=== PATIENT | male | born 1985 | race Caucasian/White ===

== ENCOUNTER 2018-04-23 11:24 | Emergency (ER) | payer OTHER ==
[~2018-04-23] VITALS: Ht 177.8 cm; Wt 145.2 kg
[~2018-04-23 11:24] MED LIST: ALBU90OI; ALBU90OI INH; ALBU90OI61 INH; AZIT250 PO; Benadryl 50 mg50 MG PO; CLIN300 PO; CODACE30 PO; CODGUAEL PO; CRUTCH4 USE; CYCL10 PO; DIPATR PO; FLUSAL2505; HYDACE5 PO; IBUP600 PO; IBUP800 PO; Lisinopril2.5 MG; METPRE4DP PO; NAPR500 PO; Naprosyn500 MG PO; Norco 10-325 T1 EACH PO; OMEP20ER; ONDA4ODT MM; PRED10 PO; PRED20 PO; PROCODE120 PO; PROM25 PO; RXHYDACE PO; RXIBUP800 PO; SULTRIDS PO
[2018-04-23] MEDS ORDERED: Percocet 7.5-31 EACH PO (12:40)
[2018-04-23] MEDS ORDERED: CRUTCH2 XX (12:43)
== END 2018-04-23 13:00 | disposition home or self-care (01) ==
LOC: ER 11:24
DX: S92.312A Displaced fracture of first metatarsal bone, left foot, initial encounter for closed fracture (principal); S92.322A Displaced fracture of second metatarsal bone, left foot, initial encounter for closed fracture; F17.200 Nicotine dependence, unspecified, uncomplicated; W31.89XA Contact with other specified machinery, initial encounter; Y99.0 Civilian activity done for income or pay
CPT/HCPCS: 29515; 73630; 96372; 99283; J3010

== ENCOUNTER 2018-05-02 10:56 | Day surgery (SDC) | payer OTHER ==
[~2018-05-02] VITALS: Ht 180.3 cm; Wt 145.2 kg
[~2018-05-02 10:56] MED LIST changes: +CRUTCH2 XX; +Percocet 7.5-31 EACH PO
== END 2018-05-02 22:39 | disposition home or self-care (01) ==
LOC: ORSCMMR 10:56 → ORD 12:30 → ORSCSDS 12:30 → ORSCMMR 12:30
PROVIDERS: Podiatrist Foot & Ankle Surgery
PROC: 0QSP0ZZ Reposition Left Metatarsal, Open Approach (ICD-10-PCS; principal; 2018-05-02 12:30)
DX: S92.322A Displaced fracture of second metatarsal bone, left foot, initial encounter for closed fracture (principal); S92.312A Displaced fracture of first metatarsal bone, left foot, initial encounter for closed fracture; S92.335A Nondisplaced fracture of third metatarsal bone, left foot, initial encounter for closed fracture; F17.210 Nicotine dependence, cigarettes, uncomplicated; E66.9 Obesity, unspecified; Z68.41 Body mass index [BMI] 40.0-44.9, adult
CPT/HCPCS: J0690; J2250; J3010; J7120

== ENCOUNTER 2018-05-11 06:07 | Day surgery (SDC) | payer OTHER ==
[~2018-05-11] VITALS: Ht 177.8 cm; Wt 144.0 kg
== END 2018-05-11 11:27 | disposition home or self-care (01) ==
LOC: ORSCSDS 06:07
PROVIDERS: Podiatrist Foot & Ankle Surgery
PROC: 0QSP04Z Reposition Left Metatarsal with Internal Fixation Device, Open Approach (ICD-10-PCS; principal; 2018-05-11 07:30)
DX: S92.312A Displaced fracture of first metatarsal bone, left foot, initial encounter for closed fracture (principal); S92.322A Displaced fracture of second metatarsal bone, left foot, initial encounter for closed fracture; S92.335A Nondisplaced fracture of third metatarsal bone, left foot, initial encounter for closed fracture; S97.82XA Crushing injury of left foot, initial encounter; G47.33 Obstructive sleep apnea (adult) (pediatric); F17.210 Nicotine dependence, cigarettes, uncomplicated; E66.01 Morbid (severe) obesity due to excess calories; Z68.42 Body mass index [BMI] 45.0-49.9, adult
CPT/HCPCS: C1713; J0330; J0690; J1100; J1885; J2250; J2405; J2710; J3010; J7120

== ENCOUNTER → 2022-06-06 | Outpatient (CLI) | payer OTHER ==
[2022-06-06 12:45] LABS: BASOPHILS ABSOLUTE AUTO 0.03 K/mm3 (0.00-0.23); BASOPHILS PERCENT AUTO 0 % (0-2); EOSINOPHILS ABSOLUTE AUTO 0.25 K/mm3 (0.00-0.68); EOSINOPHILS PERCENT AUTO 2 % (0-6); Hematocrit 40.7 % (37.0-53.0); Hemoglobin 13.5 g/dL (13.5-17.5); IMMATURE GRAN ABSOLUTE AUTO 0.12 K/mm3 (0.00-0.10); IMMATURE GRAN PERCENT AUTO 1 % (0-1); LYMPHOCYTES ABSOLUTE AUTO 1.97 K/mm3 (0.84-5.20); LYMPHOCYTES PERCENT AUTO 16 % (21-46); MONOCYTES ABSOLUTE AUTO 0.63 K/mm3 (0.16-1.47); MONOCYTES PERCENT AUTO 5 % (4-13); Mean Corpuscular HGB 28.9 pg (26.0-34.0); Mean Corpuscular HGB Conc 33.2 g/dL (31.5-36.5); Mean Corpuscular Volume 87 fL (80-100); Mean Platelet Volume 10.4 fL (9.1-12.4); NEUTROPHILS ABSOLUTE AUTO 9.39 K/mm3 (1.96-9.15); NEUTROPHILS PERCENT AUTO 76 % (41-73); Platelet Count 291 K/mm3 (150-400); RDW Coefficient Variation 13.9 % (11.7-14.2); RDW Standard Deviation 43.8 fL (35.1-46.3); Red Blood Cell Count 4.67 M/mm3 (4.30-5.90); White Blood Cell Count 12.39 K/mm3 (4.00-11.30)
[2022-06-06 13:01] LABS: Albumin, Blood 3.5 g/dL (3.4-5.0); Albumin/Globulin Ratio 0.9 (0.8-1.8); Bilirubin, Total 0.3 mg/dL (0.1-1.0); Bun/Creatinine Ratio 14.5 (12.0-20.0); Creatinine, Blood 0.76 mg/dL (0.60-1.20); Potassium, Blood 3.8 mmol/L (3.5-5.5); Total Protein, Blood 7.5 g/dL (6.4-8.2)
== END | disposition home or self-care (01) ==
LOC: LAB SHORT 12:41 → LAB 12:41
PROVIDERS: Chiropractor
DX: R07.89 Other chest pain (principal)
CPT/HCPCS: 80053; 84484; 85025

== ENCOUNTER 2023-01-31 09:26 | Emergency (ER) | payer OTHER ==
[~2023-01-31] VITALS: Ht 177.8 cm; Wt 181.4 kg
[2023-01-31 10:12] LABS: BASOPHILS ABSOLUTE AUTO 0.03 K/mm3 (0.00-0.23); BASOPHILS PERCENT AUTO 0 % (0-2); EOSINOPHILS ABSOLUTE AUTO 0.23 K/mm3 (0.00-0.68); EOSINOPHILS PERCENT AUTO 2 % (0-6); Hematocrit 43.3 % (37.0-53.0); Hemoglobin 14.4 g/dL (13.5-17.5); IMMATURE GRAN ABSOLUTE AUTO 0.09 K/mm3 (0.00-0.10); IMMATURE GRAN PERCENT AUTO 1 % (0-1); LYMPHOCYTES ABSOLUTE AUTO 1.81 K/mm3 (0.84-5.20); LYMPHOCYTES PERCENT AUTO 15 % (21-46); MONOCYTES ABSOLUTE AUTO 0.79 K/mm3 (0.16-1.47); MONOCYTES PERCENT AUTO 6 % (4-13); Mean Corpuscular HGB 28.3 pg (26.0-34.0); Mean Corpuscular HGB Conc 33.3 g/dL (31.5-36.5); Mean Corpuscular Volume 85 fL (80-100); Mean Platelet Volume 10.5 fL (9.1-12.4); NEUTROPHILS ABSOLUTE AUTO 9.46 K/mm3 (1.96-9.15); NEUTROPHILS PERCENT AUTO 76 % (41-73); Platelet Count 294 K/mm3 (150-400); RDW Coefficient Variation 13.6 % (11.7-14.2); RDW Standard Deviation 42.5 fL (35.1-46.3); Red Blood Cell Count 5.08 M/mm3 (4.30-5.90); White Blood Cell Count 12.41 K/mm3 (4.00-11.30)
[2023-01-31 10:34] LABS: Albumin, Blood 3.5 g/dL (3.4-5.0); Albumin/Globulin Ratio 0.7 (0.8-1.8); Bilirubin, Total 0.3 mg/dL (0.1-1.0); Bun/Creatinine Ratio 15.4 (12.0-20.0); Creatinine, Blood 0.65 mg/dL (0.60-1.20); Globulin, Blood 4.7 g/dL (2.2-4.0); Total Protein, Blood 8.2 g/dL (6.4-8.2)
[2023-01-31] MEDS ORDERED: Ventolin/Prove6.7 GM INH (11:07)
[2023-01-31] MEDS ORDERED: METFORMIN HCL500 M3 PO (11:07)
[2023-01-31] MEDS ORDERED: VARENICLINE TART1 M2 PO (11:08)
[2023-01-31] MEDS ORDERED: GLIMEPIRIDE2 M2 PO (11:08)
[2023-01-31] MEDS ORDERED: LISINOPRIL-HCT1 EAC1 PO (11:08)
[2023-01-31] MEDS ORDERED: INCRUSE ELPT62.5MCG (11:08)
[2023-01-31] MEDS ORDERED: OMEP20ER PO (11:08)
[2023-01-31] MEDS ORDERED: FLUTICASONE-SA1 EAC9 INH (11:09)
[2023-01-31] MEDS ORDERED: IBU800 M1 PO (11:09)
== END 2023-01-31 12:11 | disposition home or self-care (01) ==
LOC: ER 09:26
PROVIDERS: Emergency Medicine
DX: R42 Dizziness and giddiness (principal); E86.0 Dehydration; E11.9 Type 2 diabetes mellitus without complications; J45.909 Unspecified asthma, uncomplicated; F17.200 Nicotine dependence, unspecified, uncomplicated; Z79.84 Long term (current) use of oral hypoglycemic drugs; Z79.899 Other long term (current) drug therapy
CPT/HCPCS: 36415; 71046; 80053; 81000; 82947; 83690; 85025; J7030